=== PATIENT | female | born 1945 | race Caucasian/White ===

== ENCOUNTER 2023-05-18 06:17 | Day surgery (SDC) | payer MEDICARE, SELFPAY ==
[2023-05-11 09:42] VITALS: BMI 23.6
--- NOTE | 2023-05-12 14:12 | HO.ANESPROP2 ---
Documented by User: Flory Pinon NP 05/12/23 14:12 HPI - Anesthesia Eval Consult details Narrative: 78yo F for Left Cataract Extraction IOL Insertion Medically optimized No previous cataract on record COUNT INCLUDES THE [facility] Past Medical History Medical History (Updated 05/11/23 @ 09:42 by Kristie Morales RN) COPD (chronic obstructive pulmonary disease) Arthritis Iron deficiency anemia IBS (irritable bowel syndrome) Hiatal hernia GERD (gastroesophageal reflux disease) Fibromyalgia TIA (transient ischemic attack) Trigeminal neuralgia Anxiety Depression Elevated cholesterol Parkinson's disease Surgical History Surgical History (Updated 05/11/23 @ 09:33 by Kristie Morales RN) H/O colonoscopy Hx of varicose vein ligation Hx of lumbar discectomy Hx of cervical discectomy Hx of inguinal hernia repair Hx of cholecystectomy History of pubovaginal sling Hx of hysterectomy Social History Are you a primary attending ambulatory care to a significant other at home: No Do you presently have visiting nurse or other home services: No Patient Tobacco Use Status: Former Tobacco user Quit Date: Tobacco use type: Cigarette Use of substances other than those prescribed or required for medical reasons: No Have you been hit, kicked, punched, or otherwise hurt by someone within the past year? If so, by whom?: No Are you DNR?: No Advance Directives Information Provided: Yes (as above noted) Advance Directives on File: No Eating poorly because of decreased appetite: No Nutrition Risks: Surgical patient >75years Poor oral hygiene: No Meds Allergies Allergy/AdvReac Type Severity Reaction Status Date / Time Latex, Natural Rubber Allergy Intermediate Blister Verified 05/11/23 09:36 Ekngwgq-BFD-HqT Reductase AdvReac Severe Muscle Pain Verified 05/11/23 09:36 Inhibitor Home Medications Medication Instructions Recorded Confirmed Last Taken Type amitriptyline 25 mg tablet 25 mg PO BEDTIME 05/11/23 05/11/23 Unknown History aspirin 81 mg tablet,delayed 81 mg PO DAILY 05/11/23 05/11/23 Unknown History release brimonidine 0.2 % eye drops 1 drp ophthalmic (eye) Q12H 05/11/23 05/11/23 Unknown History budesonide-formoterol HFA 160 2 puff inhalation BID 05/11/23 05/11/23 05/18/23 History mcg-4.5 mcg/actuation aerosol inhaler (Symbicort) carbidopa 25 mg-levodopa 100 mg 1 tab PO QID 05/11/23 05/11/23 05/18/23 History tablet multivitamin 1 tab PO DAILY 05/11/23 05/11/23 Unknown History nitroglycerin 0.4 mg sublingual 0.4 mg sublingual ONCE PRN Chest 05/11/23 05/11/23 Unknown History tablet Pain paroxetine HCl 20 mg tablet 20 mg PO QAM 05/11/23 05/11/23 05/18/23 History polyethylene glycol 3350 17 gram 17 g PO DAILY 05/11/23 05/11/23 Unknown History oral powder packet Exam Height,Weight and Vital Signs: Height 5 ft 3 in Weight 60.328 kg Assessment and Plan Assessment Anesthesia Assessment: Chart Reviewed Documented by User: Bette Dickson MD 05/18/23 07:45 COUNT INCLUDES THE [facility] Past Medical History Medical History (Updated 05/11/23 @ 09:42 by Kristie Morales RN) COPD (chronic obstructive pulmonary disease) Arthritis Iron deficiency anemia IBS (irritable bowel syndrome) Hiatal hernia GERD (gastroesophageal reflux disease) Fibromyalgia TIA (transient ischemic attack) Trigeminal neuralgia Anxiety Depression Elevated cholesterol Parkinson's disease Surgical History Surgical History (Updated 05/11/23 @ 09:33 by Kristie Morales RN) H/O colonoscopy Hx of varicose vein ligation Hx of lumbar discectomy Hx of cervical discectomy Hx of inguinal hernia repair Hx of cholecystectomy History of pubovaginal sling Hx of hysterectomy History of Problems with Anesthesia: No Social History Are you a primary attending ambulatory care to a significant other at home: No Do you presently have visiting nurse or other home services: No Patient Tobacco Use Status: Former Tobacco user Quit Date: Tobacco use type: Cigarette Use of substances other than those prescribed or required for medical reasons: No Have you been hit, kicked, punched, or otherwise hurt by someone within the past year? If so, by whom?: No Are you DNR?: No Advance Directives Information Provided: Yes (as above noted) Advance Directives on File: No Eating poorly because of decreased appetite: No Nutrition Risks: Surgical patient >75years Poor oral hygiene: No Meds Allergies Allergy/AdvReac Type Severity Reaction Status Date / Time Latex, Natural Rubber Allergy Intermediate Blister Verified 05/11/23 09:36 Devtvit-TAJ-CmN Reductase AdvReac Severe Muscle Pain Verified 05/11/23 09:36 Inhibitor Home Medications Medication Instructions Recorded Confirmed Last Taken Type amitriptyline 25 mg tablet 25 mg PO BEDTIME 05/11/23 05/11/23 Unknown History aspirin 81 mg tablet,delayed 81 mg PO DAILY 05/11/23 05/11/23 Unknown History release brimonidine 0.2 % eye drops 1 drp ophthalmic (eye) Q12H 05/11/23 05/11/23 Unknown History budesonide-formoterol HFA 160 2 puff inhalation BID 05/11/23 05/11/23 05/18/23 History mcg-4.5 mcg/actuation aerosol inhaler (Symbicort) carbidopa 25 mg-levodopa 100 mg 1 tab PO QID 05/11/23 05/11/23 05/18/23 History tablet multivitamin 1 tab PO DAILY 05/11/23 05/11/23 Unknown History nitroglycerin 0.4 mg sublingual 0.4 mg sublingual ONCE PRN Chest 05/11/23 05/11/23 Unknown History tablet Pain paroxetine HCl 20 mg tablet 20 mg PO QAM 05/11/23 05/11/23 05/18/23 History polyethylene glycol 3350 17 gram 17 g PO DAILY 05/11/23 05/11/23 Unknown History oral powder packet Exam Airway Mallampati Class: II TM Dist: >3cm Neck ROM: Full Heart: RRR Lungs: CTA Assessment and Plan Assessment Anesthesia Assessment: Anesthesia Plan Discussed Final Anesthetic Review History of Problems with Anesthesia: No NPO: Yes ASA Class: III Final Preanesthetic Review: Meds/Allgs Chart Reviewed, Consent Obtained/Reviewed and Anes Risks/Benef Reviewed Patient Risk: Intermediate Procedure Risk: Low Anesthetic Plan Anesthetic Plan: MAC: Disposition: Standard PACU
[2023-05-18 06:57] VITALS: BP 153/67; PULSE 69; RESP 16; TEMP 36.8; O2SAT 97
[2023-05-18] MEDS: Lactated Ringers 500 ML 50 ML IV (06:59)
--- NOTE | 2023-05-18 07:57 | HO.PNOPHT ---
Ophthalmology Procedure Procedure Date of Service: 05/18/23 Ophthalmology Viscoelastic: Healon Duet Dual Pack Pro Ophthalmology Lenses: TECNIS [id number] (20.5) Procedure Notes: PREOPERATIVE DIAGNOSIS: Decreased visual acuity left eye secondary to cataract POSTOPERATIVE DIAGNOSIS: Same PROCEDURE: Left cataract extraction with intraocular lens insertion SURGEON: Demarcus Campbell M.D. ANESTHESIA: Topical/MAC ESTIMATED BLOOD LOSS: None COMPLICATIONS: None After obtaining informed consent, the patient was brought to the operation room suite and placed in the supine position. After adequate sedation per anesthesia, topical drops of Tetracaine were given to the left eye. The eye was then prepped and draped in the usual sterile fashion. The operating room microscope was then positioned over the operative eye and a lid speculum placed. A paracentesis was created. Viscoelastic was then instilled into the anterior chamber. A three plane incision was then created temporally, utilizing a 2.85 mm keratome. Capsulotomy forceps were then utilized to create a circular tear capsulotomy. Hydrodissection and hydrodelineation were carried out until adequate mobilization of the nucleus occurred. Phacoemulsification was then utilized to remove the dense central nucleus followed by removal of the cortical material utilizing the automated aspiration irrigation unit. Viscoat elastic was instilled into the posterior capsular bag followed by placement of a posterior chamber intraocular lens without difficulty. The residual Viscoat elastic was then removed utilizing the automated IA machine. The wound was check and found to be watertight. The patient tolerated the procedure well and the lid speculum was removed. Intracameral injection of Vigamox 0.1 mL followed by a subtenon injection of Kenalog-40 0.2 mL were administered. The patient will be seen in the a.m.
[2023-05-18 08:24] VITALS: BP 158/60; PULSE 67; RESP 17; TEMP 36.3; O2SAT 95
== END 2023-05-18 08:28 | disposition home or self-care (01) ==
PROVIDERS: PCP Family Medicine; Visit Provider Ophthalmology
PROC: (CPT 66985; principal; 2023-05-18 08:00)
DX: H25.12 Age-related nuclear cataract, left eye (principal); H52.4 Presbyopia; H40.1131 Primary open-angle glaucoma, bilateral, mild stage; H11.153 Pinguecula, bilateral; H43.393 Other vitreous opacities, bilateral; H18.413 Arcus senilis, bilateral; G20.A2 Parkinson's disease without dyskinesia, with fluctuations; J44.9 Chronic obstructive pulmonary disease, unspecified; D50.9 Iron deficiency anemia, unspecified; F41.8 Other specified anxiety disorders; Z98.1 Arthrodesis status; Z79.82 Long term (current) use of aspirin; Z79.51 Long term (current) use of inhaled steroids; Z79.899 Other long term (current) drug therapy; Z88.8 Allergy status to other drugs, medicaments and biological substances; Z91.040 Latex allergy status
CPT/HCPCS: 66984; J3010; J3301; V2632

== ENCOUNTER 2025-04-25 10:00 | Outpatient (AMB) | payer MEDICARE, SELFPAY ==
--- NOTE | 2025-04-25 10:35 | A.OFFVIS_ITS ---
Intake Visit Reasons: ENP-Parkinson Allergies Latex, Natural Rubber Allergy (Intermediate, Verified 05/11/23 09:36) Blister Wvkindx-WXQ-PhM Reductase Inhibitor Adverse Reaction (Severe, Verified 05/11/23 09:36) Muscle Pain Medication List - Last Reconciled 04/25/25 by Lamin Vazquez MD amitriptyline 25 mg PO BEDTIME aspirin 81 mg PO DAILY brimonidine 0.2% 1 drp ophthalmic (eye) Q12H budesonide-formoterol 160-4.5 mcg/actuation (Symbicort) 2 puffs inhalation BID carbidopa-levodopa 25-100 mg 1 tab PO QID desonide 0.05% 1 appl topical DAILY multivitamin 1 tab PO DAILY omeprazole 20 mg PO DAILY paroxetine HCl 20 mg PO QAM polyethylene glycol 3350 17 grams PO DAILY HPI Comments Details: This is a 80-year-old woman who is here with her and daughter for a 2nd opinion regarding her ?Parkinson's disease?. She has a history of osteoarthritis, hiatal hernia with GERD and a remote history of right trigeminal neuralgia that has been in remission. She has some COPD and asthma as well as some elements of depression and anxiety. She 1st developed some tremors in her hands about more than 10 years ago [address] saw Dr[address] Mukund Hernandes III who diagnosed her as having familial tremor because of the history of tremor in her father and 2 brothers. Five years ago she saw Dr. Restrepo who diagnosed her with Parkinson's disease and put her on carbidopa le vodopa 251 q.i.d.. There has been no significant change except she says that she does not get tremors when she is relaxed at home and only gets them if she is anxious or has to go somewhere. The tremor can affect the whole-body which gets a little shaky and wobbly and particularly in her hands. In the last year she has been noted to have some soft findings of short-term memory decline. No major change in her smell. No nightmares. She has been on amitriptyline 25 mg for many years and also takes paroxetine 20 mg. She has had chronic constipation problems as well. No major mobility problems. She is independent without a cane or walker. She has some difficulty turning in bed because of aches and pains. She is here because she wants to know if she really has Parkinson's disease. [facility] Medical History (Updated 04/25/25 @ 10:53 by Lamin Vazquez MD) Migraine COPD (chronic obstructive pulmonary disease) Arthritis Iron deficiency anemia IBS (irritable bowel syndrome) Hiatal hernia GERD (gastroesophageal reflux disease) Fibromyalgia TIA (transient ischemic attack) Trigeminal neuralgia Anxiety Depression Elevated cholesterol Parkinson's disease Surgical History (Updated 05/11/23 @ 09:33 by Kristie Morales RN) H/O colonoscopy Hx of varicose vein ligation Hx of lumbar discectomy Hx of cervical discectomy Hx of inguinal hernia repair Hx of cholecystectomy History of pubovaginal sling Hx of hysterectomy Social History Are you a primary transitional care manager to a significant other at home: No Do you presently have visiting nurse or other home services: No Patient Tobacco Use Status: Former Tobacco user Tobacco use type: Cigarette Review of Systems Const Reports weight loss Resp Reports excessive phlegm production Musc Reports abnormal gait Neuro Reports Neuro-related abnormal movements, Reports abnormal gait, Reports memory loss and Reports tremor(s) Psych Reports anxiety, Reports depression and Reports memory loss Physical Exam Neuro Other: ?Mini Mental Status Exam Level of Consciousness:?Alert.? Orientation:?Knows correct year, month, date, day and season.?Knows correct city, county and state. Knows correct location and floor.? Registration:?Able to register 3 objects.? Attention:?Serial 7's performed accurately.? Recall:?Able to recall 3 out of 3 objects.? Language:?Normal spontaneous speech, fluency, repetition, naming, comprehension, reading, and writing.? Total Score:?30/30.? Neurological Abnormal neurological findings:? Prominent intermittent coarse tremors of both hands sometimes when she is using them but not at rest. No head tremor. No reduction in facial expression. Normal muscle tone with no rigidity or cogwheeling. Good arm swing when she walks.? Mental Status:?Alert and oriented X 3.?Normal attention, orientation, memory, and affect.? Cranial Nerves:?Pupils are equal, round and reactive to light. Fundoscopy shows normal disc bilaterally. External occular muscles are intact. Visual messina are full, no ptosis. Face is symmetrical, no facial weakness or droop. Facial sensations are normal. Tongue protrudes in midline. Palate elevates symmetrically. Shoulder shrugging is normal.? Motor Examination:?Normal muscle tone, bulk and strength.?No atrophy or fasciculations.?No drift of the extended upper extremities.?Deep tendon reflexes are 2+.?Plantars are flexor.? Motor Strength:? Proximal Muscles (out of 5):?5 Distal Muscles (out of 5):?5 Neck Flexors (out of 5):?5 Neck Extensors (out of 5):?5 Deltoid (out of 5):?5 Biceps (out of 5):?5 Triceps (out of 5):?5 Serratus Anterior (out of 5):?5 Wrist Extensors (out of 5):?5 APB (out of 5):?5 Finger Spread (out of 5):?5 Ileopsoas (out of 5):?5 Quadriceps (out of 5):?5 Hamstrings (out of 5):?5 Tibialis Anterior (out of 5):?5 Peronei (out of 5):?5 EDB (out of 5):?5 Gastrocnemius (out of 5):?5 Straight Leg Raising:?90 degrees.? Sensory Exam:?Normal light touch, temperature, pinprick, vibration and joint-position sensations.?Rhomberg sign is absent.? Coordination:?No ataxia,?no titubation,?rhcann-uz-rvjf, rtzm-ejci-gdhy test, and rapid alternating movements were normal.? Gait Exam:?Within normal limits.? Cerebellar Signs:?Loywzh-tr-xlrt and undq-wa-vjzd is normal.?No dysdiadochokinesia.? Extrapyramidal System:? Tremor as above. No?rigidity, normal facial expressions.?No bradykinesia. No bradyphrenia. Normal arm swing and posture. No propulsion or retropulsion.? Speech:?Normal,?no dysphasia or dysarthria.? General Examination GENERAL APPEARANCE:??normal,?in no acute distress?,?normal,?in no acute distr ess.? HEAD:??normocephalic,?atraumatic.? EYES:??sclera non-icteric,?conjunctiva clear.? EARS:??auditory canal clear,?tympanic membrane intact, clear.? NOSE:??no lesions.? ORAL CAVITY:??gums normal,?mucosa moist,?no lesions.? THROAT:??clear.? NECK/THYROID:??no cervical lymphadenopathy,?thyroid normal,?neck supple, full range of motion,?no carotid bruit.? SKIN:??no rashes,?no significant birthmarks.? HEART:??S1, S2 normal,?no murmurs?,?S1, S2 normal,?no murmurs.? LUNGS:??clear anteriorly and posteriorly?,?clear anteriorly and posteriorly.? CHEST:??no gross rib deformity,?clear to auscultation.? BACK:??normal exam of spine.? MUSCULOSKELETAL:??normal.? EXTREMITIES:??no edema?,?no edema.? PERIPHERAL PULSES:??normal.? PSYCH:??alert, oriented,?cognitive function intact,?cooperative with exam?,?alert, oriented,?cognitive function intact,?cooperative with exam.? Assessment & Plan Assessment & Plan (1) Benign familial tremor: Code(s): G25.0 - Essential tremor Category: Medical (2) Parkinson's disease: Comment: taking carbidopa/levodopa. I do not believe that she has Parkinson's disease but rather familial tremor. Since she is being treated it is possible that the carbidopa levodopa could be masking some of the other parkinsonian features. Code(s): G20.A1 - Parkinson's disease without dyskinesia, without mention of fluctuations Category: Medical (3) Trigeminal neuralgia: Comment: In remission for many years Code(s): G50.0 - Trigeminal neuralgia Category: Medical Plan FELICIA Scan, Taper of L-Dopa over 6 wks, Reduce Amitriptyline to 1/2 tab. Reduce Symbicort to 1 puff bid Orders: Orders DaTscan 3 Weeks G20.A1 - Parkinson's disease without dyskinesia, without mention of fluctuations, G25.0 - Essential tremor Coding Level of Care Code New Pt Level 5 (33990) Diagnoses Benign familial tremor G25.0 Parkinson's disease G20.A1 Trigeminal neuralgia G50.0
--- OUTSIDE RECORDS SUMMARY | 2025-04-25 11:34 | XMS_ITS | Encounter Summary ---
Author Organization [facility] Address [address] [place] [address] [place] [id number] Phone Care Team Providers Care Greenhouse Instructor Name Role Phone Enoch Lorenzana MD Primary Care Provider [phone] Enoch Lorenzana MD Unavailable [phone] Encounter Details Date Type Department Care Team (Late st Contact Info) Description 03/07/2024 Procedure Pass [facility], Ct Scan - [address] [address] Social History Tobacco Use Types Packs/Day Years Used Date Smoking Tobacco: Former Cigarettes 0.3 30 1 965 - 1994 Smokeless Tobacco: Never Alcohol Use Standard Drinks/Week Comments Yes 0 (1 standard drink = 0.6 oz pure alcohol) one glass of wine on special occasion Education Answer Date Recorded Are you interested in more education? Not on ericka e 10/18/2022 Are you concerned about learning? Not on file 10/18/2022 No 10/18/2022 No 10/18/2022 Digital Access Answer Date Recorded No 11/16/2022 No 11/16/2022 Reliable internet access at home? Not on file 11/16/2022 Device with a working camera? Not on file Intimate Partner Violence Answer Date R ecorded Are you denied basic needs s uch as food, clothing, or medical care? No 03/07/2024 In the past 12 months have y ou been in a relationship with a person who hurts, threatens, or tries to control you? No 03/07/2024 Are you denied basic needs s uch as food, clothing, or medical care? No 03/07/2024 In the past 12 months have y ou been in a relationship with a person who hurts, threatens, or tries to control you? No 03/07/2024 Comments No Sex and Gender Information Value Date Recorded Sex Assigned at Female 01/28/2021 11:00 AM EDT Legal Sex Female 6:27 PM EST Gender Identity Female 01/28/2021 11:00 AM EDT Sexual Orientation Not on file documented as of this encounter Functional Status * Calculated C-SSRS Risk Score (Lifetime/Recent) Answer Date of Assessment Author No Risk Indicated 03/07/2024 1:45 PM EDT Kaylan Jason RN * Campbell Suicide Severity Rating Scale (Screener/Recent Self-Report) Question Answer Date of Assessment Author 1. Wish to be (Past 1 Month) No 024 1:45 PM EDT Kaylan Jason RN 2. Non-Specific Active Suici graciela Thoughts (Past 1 Month) No 03/07/2024 1:45 PM EDT Crista Jason RN 6. Suicidal Behavior (Lifetime) No 4 1:45 PM EDT Kaylan Jason RN documented as of this encounter Plan of Treatment Upcoming Encounters Date Type Department Care Team (Late st Contact Info) Description 07/24/2025 8:30 AM EST Office Visit [address] [place] [address] Enoch Lorenzana MD [address] [place] [address], [address] [place] [id number] 01/02/2026 9:00 AM EDT Office Visit [address] [place] [address] Enoch Lorenzana MD [address] [place] [address], [address] [place] [id number] documented as of this encounter Visit Diagnoses Not on filedocumented in this encounter Additional Health Concerns Assessment Noted Time PHQ-2 Depression Total Score: 1 07/31/19 24 8:58 AM EST documented as of this encounter Care Teams Greenhouse Instructor Relationship Specialty Start Date End Date Enoch Lorenzana MD [address] [place] [address], [address] [place] [address] PCP - General 11/30/14 Enoch Lorenzana MD [address] [place] [address], [address] [place] [address] Insurance Assigned Provider 09/26/23 documented as of this encounter Additional Source Comments The information contained in this document represents components of the legal health record. It is not the complete legal health record.[facility]
--- OUTSIDE RECORDS SUMMARY | 2025-04-25 11:35 | XMS_ITS | Encounter Summary ---
Author Organization [facility] Address [address] [place] [address] [place] [phone] Phone Care Team Providers Care Paper Cutter Operator Name Role Phone Enoch Lorenzana MD Primary Care Provider + [phone] Enoch Lorenzana MD Unavailable [phone] Encounter Details Date Type Department Care Team (Late st Contact Info) Description 08/27/2021 Procedure Pass [place] Admitting Dept - Virtual Department [address] [place] [id number] Social History Tobacco Use Types Packs/Day Years Used Date Smoking Tobacco: Former Cigarettes 0.3 30 1 965 - 1994 Smokeless Tobacco: Never Alcohol Use Standard Drinks/Week Comments Not Currently 0 (1 standard drink = 0.6 oz pure alcohol) one glass of wine on special occasion Comments No Sex and Gender Information Value Date Recorded Sex Assigned at Female 01/28/2021 11:00 AM EDT Legal Sex Female 6:27 PM EST Gender Identity Female 01/28/2021 11:00 AM EDT Sexual Orientation Not on file documented as of this encounter Plan of Treatment Upcoming Encounters Date Type Department Care Team (Late st Contact Info) Description 07/24/2025 8:30 AM EST Office Visit [facility] [address] [place] [address] Enoch Lorenzana MD [address] [facility], [address] [place] [address] 01/02/2026 9:00 AM EDT Office Visit [facility] Medicine [address] [place] [address] Enoch Lorenzana MD [address] [facility] [place] [address] [email or web address] documented as of this encounter Visit Diagnoses Not on filedocumented in this encounter Additional Health Concerns Infection Onset Date Last Indicated Resolved Time CoV-Risk 08/21/2023 08/21/2023 09/01/2023 1:23 AM EDT Assessment Noted Time PHQ-2 Depression Total Score: 0 07/23/19 9:23 AM EST documented as of this encounter Care Teams Paper Cutter Operator Relationship Specialty Start Date End Date Enoch Lorenzana MD [address] [place] [address], [address] [place] [address] PCP - General 11/30/14 Enoch Lorenzana MD [address] [place] [address], [address] [place] [address] Insurance Assigned Provider 09/26/23 documented as of this encounter Additional Source Comments The information contained in this document represents components of the legal health record. It is not the complete legal health record.[facility]
--- OUTSIDE RECORDS SUMMARY | 2025-04-25 11:35 | XMS_ITS | Encounter Summary ---
Author Organization [facility] Address [address] [place] [address] [place] [address] Phone Care Team Providers Care Community Service Officer Name Role Phone Enoch Lorenzana MD Primary Care Provider [phone] Enoch Lorenzana MD Unavailable [phone] Encounter Details Date Type Department Care Team (Late st Contact Info) Description 03/07/2024 Procedure Pass [facility], Ct Scan - [address] [address] Social History Tobacco Use Types Packs/Day Years [...] 1:45 PM EDT Kaylan Jason RN * Perry Suicide Severity Rating Scale (Screener/Recent Self-Report) Question [...] Description 07/24/2025 8:30 AM EST Office Visit [address] [place] [address] Enoch Lorenzana MD [address] [place] [address], [address] [place] [address] [email or web address] 01/02/2026 9:00 AM EDT Office Visit [address] [place] [address] Enoch Lorenzana MD [address] [place] [address], [address] [place] [address] documented as of this encounter Visit Diagnoses Not on filedocumented in this encounter Additional Health Concerns Assessment Noted Time PHQ-2 Depression Total Score: 1 07/31/19 24 8:58 AM EST documented as of this encounter Care Teams Community Service Officer Relationship Specialty Start Date End Date Enoch Lorenzana MD [address] [place] [address], [address] [place] [address] PCP - General 11/30/14 Enoch Lorenzana MD [address] [place] [address], [address] [place] [address] Insurance Assigned Provider 09/26/23 documented as of this encounter Additional Source Comments The information contained in this document represents components of the legal health record. It is not the complete legal health record.[facility]
--- OUTSIDE RECORDS SUMMARY | 2025-04-25 11:36 | XMS_ITS | Encounter Summary ---
Author Organization [facility] Address [address] [place] [address] [place] [phone] Phone Care Team Providers Care Machine Stone Polisher Apprentice Name Role Phone Enoch Lorenzana MD Primary Care Provider [phone]- [phone] Enoch Lorenzana MD Unavailable [phone] Encounter Details Date Type Department Care Team (Late st Contact Info) Description 08/22/2022 Procedure Pass [facility], Ct Scan - [address] [address] Social History Tobacco Use Types Packs/Day Years [...] Description 07/24/2025 8:30 AM EST Office Visit [address] [place] [address] Enoch Lorenzana MD 22 [facility], [address] [place] [address] 01/02/2026 9:00 AM EDT Office Visit [facility] Medicine [address] [place] [address] Enoch Lorenzana MD [address] [facility], [address] [place] [address] [email or web address] documented as of this encounter Visit Diagnoses Not on filedocumented in this encounter Additional Health Concerns Infection Onset Date Last Indicated Resolved Time CoV-Risk 08/21/2023 08/21/2023 09/01/2023 1:23 AM EDT Assessment Noted Time PHQ-2 Depression Total Score: 0 07/29/19 2:34 PM EST documented as of this encounter Care Teams Machine Stone Polisher Apprentice Relationship Specialty Start Date End Date Enoch Lorenzana MD 22 [facility], [address] [place] [address] PCP - General 11/30/14 Enoch Lorenzana MD [address] [place] [address], [address] [place] [address] Insurance Assigned Provider 09/26/23 documented as of this encounter Additional Source Comments The information contained in this document represents components of the legal health record. It is not the complete legal health record.[facility]
--- OUTSIDE RECORDS SUMMARY | 2025-04-25 11:36 | XMS_ITS | Encounter Summary ---
Author Organization [facility] Address [address] [place] [address] [place] [phone] Phone Care Team Providers Care Paper Bag Machine Operator Name Role Phone Enoch Lorenzana MD Primary Care Provider [phone] Enoch Lorenzana MD Unavailable Reason for Referral * MRI/CAT Scan - Closed Specialty Diagnoses / Procedures Referred By Contjannet t Referred To Contact Radiology Diagnoses CAD (coronary artery disease) Procedures NC Stress Result for Nuclear Stress Test Enoch Lorenzana MD Phone: tel: fax: [email or web address] Referral ID Status Reason Start Date Expiration Date Visits Re quested Visits Authorized [id number] Closed 08/28/2022 08/28/2023 1 1 Encounter Details Date Type Department Care Team (Late st Contact Info) Description 08/28/2022 Ancillary Orders Non-Invasive Cardiology [address] [place] [address] Enoch Lorenzana MD 22 [facility], [address] [place] [address] [email or web address] CAD (coronary artery disease) Social History Tobacco Use Types Packs/Day Years [...] Description 07/24/2025 8:30 AM EST Office Visit [address] [place] [address] Enoch Lorenzana MD [address] [place] [address], [address] [place] [address] [email or web address] 01/02/2026 9:00 AM EDT Office Visit [address] [place] [address] Enoch Lorenzana MD [address] [place] [address], [address] [place] [address] [email or web address] documented as of this encounter Results * NC Stress Result for Nuclear Stress Test (08/28/2022 12:32 PM EST) Max BP Systolic 200 mmHg [facility] Max BP Diastolic 90 mmHg [facility] Max HR 107 BPM [facility] Resting HR 84 BPM [facility] Resting BP Systolic 144 mmHg [facility] Resting BP Diastolic 82 mmHg [facility] Peak METS 4.5 METS [facility] Peak HR 106 BPM [facility] Anatomical Region Laterality Modality Heart Other 08/28/2022 10:0 2 AM EST 08/28/2022 12:25 PM EST Narrative 08/29/2022 9:00 AM EST I agree with the findings and conclusion of the supervising advanced practitioner. No EKG evidence of ischemia. Patient did report symptoms concerning for angina. Nuclear images pending and will be reported separately. Response to Stress The patient exercised for minutes seconds, achieving 4.5 METS at peak exercise. Baseline blood pressure was 144/82 mmHg, and baseline heart rate was 84 bpm. The patient achieved a peak heart rate of 106 bpm, which is% of their maximum predicted heart rate. REPORT- Patient exercised for 3;56 minutes on a MAGNOLIA protocol achieving 5.2 METS. Test terminated due to severe neck, left shoulder and left arm pain (? anginal equivalent). Baseline resting heart rate was 68 bpm. Maximum heart rate achieved was 107 bpm (75% MPHR). 1. EKG - Baseline EKG showed sinus rhythm. During exercise, there were no EKG changes suggestive of ischemia. 2. SYMPTOMS - At peak exercise, patient reported onset of severe left neck, shoulder and arm pain with associated arm numbness. Symptoms slowly improved at rest during the recovery period. 3. EXERCISE PHYSIOLOGY - Average functional capacity for age. Normotensive BP response to exercise. 4. ARRHYTHMIAS - Rare PACs and PVCs. Conclusion - No EKG evidence of ischemia. Patient did report symptoms concerning for angina. Nuclear images pending and will be reported separately. Zahida Eller NP with Dr Jiménez . Enoch Lorenzana MD CV NM CARDIAC Final Resu lt documented in this encounter Visit Diagnoses Diagnosis CAD (coronary artery disease) Coronary atherosclerosis of unspecified type of vessel, chilkat or graft CAD (coronary artery disease) Coronary atherosclerosis of unspecified type of vessel, chilkat or graft documented in this encounter Additional Health Concerns Infection Onset Date Last Indicated Resolved Time CoV-Risk 08/21/2023 08/21/2023 09/01/2023 1:23 AM EDT Assessment Noted Time PHQ-2 Depression Total Score: 0 07/29/19 23 2:34 PM EST documented as of this encounter Care Teams Paper Bag Machine Operator Relationship Specialty Start Date End Date Enoch Lorenzana MD [address] [place] [address], [address] [place] [address] PCP - General 11/30/14 Enoch Lorenzana MD [address] [place] [address], [address] [place] [address] [email or web address] Insurance Assigned Provider 09/26/23 documented as of this encounter Additional Source Comments The information contained in this document represents components of the legal health record. It is not the complete legal health record.[facility]
--- OUTSIDE RECORDS SUMMARY | 2025-04-25 11:38 | XMS_ITS | Encounter Summary ---
Author Organization [facility] Address [address] [place] [address] [place] [address] Phone Care Team Providers Care Manager Of Hospital Name Role Phone Enoch Lorenzana MD Primary Care Provider + [phone] Enoch Lorenzana MD Unavailable [phone] Encounter Details Date Type Department Care Team (Late st Contact Info) Description 03/25/2019 Procedure Pass [facility], [address] [address] Social History Tobacco Use Types Packs/Day Years Used Date Smoking Tobacco: Former Cigarettes 0.3 30 1 965 - 1994 Smokeless Tobacco: Never Alcohol Use Standard Drinks/Week Comments Not Currently 0 (1 standard drink = 0.6 oz pur e alcohol) Comments No Sex and Gender Information Value Date Recorded Sex Assigned at Female 01/28/2021 11:00 AM EDT Legal Sex Female 6:27 PM EST Gender Identity Female 01/28/2021 11:00 AM EDT Sexual Orientation Not on file documented as of this encounter Plan of Treatment Upcoming Encounters Date Type Department Care Team (Late st Contact Info) Description 07/24/2025 8:30 AM EST Office Visit [address] [place] [address] Enoch Lorenzana MD 22 [facility], [address] [place] [address] 01/02/2026 9:00 AM EDT Office Visit [facility] [address] [place] [address] Enoch Lorenzana MD 22 [facility], [address] [place] [address] documented as of this encounter Visit Diagnoses Not on filedocumented in this encounter Additional Health Concerns Infection Onset Date Last Indicated Resolved Time CoV-Risk 08/21/2023 08/21/2023 09/01/2023 1:23 AM EDT Assessment Noted Time PHQ-2 Depression Total Score: 1 10/16/19 19 9:53 AM EDT documented as of this encounter Care Teams Manager Of Hospital Relationship Specialty Start Date End Date Enoch Lorenzana MD [address] [place] [address], [address] [place] [address] PCP - General 11/30/14 Enoch Lorenzana MD [address] [place] [address], [address] [place] [address] Insurance Assigned Provider 09/26/23 documented as of this encounter Additional Source Comments The information contained in this document represents components of the legal health record. It is not the complete legal health record[facility]
--- OUTSIDE RECORDS SUMMARY | 2025-04-25 11:38 | XMS_ITS | Clinical Summary ---
Author Organization [facility] Address [address] [place] [address] Phone Care Team Providers Care Lawnmower Mechanic Name Role Phone Enoch Lorenzana MD Primary Care Provider [phone] Enoch Lorenzana MD Unavailable [phone] Allergies Active Allergy Reactions Criticality Noted Date Comments Atorvastatin Myalgia Low 03/05/2021 Latex Hives High 03/09/2013 Rosuvastatin Myalgia Low 03/09/2013 Trospium Fatigue,Tremor Low 04/03/2020 Medications aspirin 81 mg chewable tablet Take 1 tablet by mouth daily. Active brimonidine 0.2 % ophthalmic solution Place 1 drop into each eye 2 (two) times a day. 5 9 Active polyethylene glycol (MIRALAX) 17 gram packet Take 17 g by mouth daily. Active therapeutic multivitamin tablet Take 1 tablet by mouth daily. Active carbidopa-levodo pa (SINEMET) 25-100 mg per tablet Take 1 tablet by mouth 4 (four) times a day. 3 Active desonide (DESOWEN) 0.05 % cream Apply 0.05 Applications topically 2 (two) times a day. 4 Active acetaminophen (TYLENOL) 500 MG tabletIndication s:arthritic pain Take 1,000 mg by mouth 2 (two) times a day (once in the morning and once in the afternoon). Indications: pain associated with arthritis Active glucosam/kris-ms m1/C/karishma/bosw (OSTEO BI-FLEX TRIPLE STRENGTH ORAL) Take 1 tablet by mouth daily. Active food supplemt, lactose-reduced (,ENSURE PLUS,) 0.05 gram- 1.5 kcal/mL Liqd Take 1 Can by mouth 3 (three) times a day. Active fluticasone propionate (FLONASE) 50 mcg/actuation nasal spray 1 spray by Nasal route daily. Active omeprazole (PRILOSEC) 20 MG capsule Take 1 capsule (20 mg total) by mouth daily. 90 capsule 3 5 Active budesonide-formo terol 160-4.5 mcg/actuation inhalerIndicatio ns:Asthma INHALE TWO PUFFS BY MOUTH TWICE A DAY 10.2 g 11 5 Active PARoxetine (PAXIL) 20 MG tablet TAKE ONE TABLET BY MOUTH EVERY MORNING 90 tablet 3 5 Active Active Problems Problem Noted Date Diagnosed Date Allergic rhinitis due to allergen 12/20/2024 Assessment & Plan (12/20/2024 9:13 AM EDT): Recommend loratadine 10 mg daily [id number] and Flonase 2 sprays daily to each nostril. Primary osteoarthritis of both hands 05/30/2024 Primary osteoarthritis of left knee 12/24/2023 Assessment & Plan (03/14/2024 12:12 PM EDT): Left knee pain after fall. She denies significant pain worse from baseline. She is following with orthopedics and will call them if knee pain persists or worsens. Carpal tunnel syndrome on left 12/24/2023 Parkinson's disease without dyskinesia Assessment & Plan (12/20/2024 9:13 AM EDT): Cortical age-related cataract of right eye 06/17 Iron deficiency anemia 08/19/2022 S/P inguinal hernia repair using synthetic patch 09/10/2021 Esophageal spasm 11/23/2020 Hot flashes 08/21/2020 Overview (08/21/2020): Onset in Apr 2020 after stopping a vaginal E2 cream 3x a week, small amount Assessment & Plan (03/14/2024 12:09 PM EDT): Pt noting ongoing hot flashes, somewhat worse than prior. Advised she continue to monitor. Follow up with PCP if worsening or failure to improve. Assessment & Plan (08/21/2020 5:54 PM EST): These are decreasing; may have absorbed more of the E2 via the vaginal cream than usual Other etiologies more rare such as peho, declined 24 hour urine testing for metabolites Advise seeing PCP is these persist or increase to look for other etiologies Cystocele with rectocele 03/03/2018 Overview (08/21/2020): S/p repair with a tape by [facility] nurse assistant Assessment & Plan (08/21/2020 5:52 PM EST): Currently without sxs from this other than urethra is displaced and urine stream is off? Abnormal fasting glucose 05/26/2017 Depression with anxiety 05/26/2017 Assessment & Plan (12/20/2024 9:13 AM EDT): Patient referred to Ricardo Jenkins for counseling. Cervical radiculitis 05/26/2017 Chronic neck pain 05/26/2017 Familial tremor 05/26/2017 Fibromyalgia 05/26/2017 Gastroesophageal reflux disease without esophagi tis 05/26/2017 Hiatal hernia 05/26/2017 History of TIA (transient ischemic attack) and s troke 05/26/2017 Hypercalcemia 05/26/2017 Mixed stress and urge urinary incontinence 05/26 Non-seasonal allergic rhinitis due to pollen 10/2016 Osteoarthritis of spine 05/26/2017 Arthralgia of hip 05/26/2017 Trigeminal neuralgia 05/26/2017 Trigger ring finger of left hand 05/26/2017 Other hyperlipidemia 03/10/2012 Overview (05/26/2017): Hyperlipidemia Irritable bowel syndrome COPD (chronic obstructive pulmonary disease) Overview (08/19/2022): inhalers Assessment & Plan (12/20/2024 9:13 AM EDT): Continue Symbicort. Resolved Problems Problem Noted Date Diagnosed Date Resolved Date Senile purpura 07/29/2022 10/23/2023 Essential hypertension 03/10/201210/15 Overview (08/12/2014): Hypertensive disorder Encounters Date Type Department Care Team Description 03/27/[address] [place] [address] Makenna Butt MA Results 03/23/2025 10:42 AM EDT - 03/23/2025 11:59 PM EDT Hospital Encounter [facility] [address] [address] Enoch Lorenzana MD Discharge Disposition: Home or Self Care 03/22/2025 8:30 AM EDT Office Visit [address] [place] [address] Enoch Lorenzana MD Parkinson's disease without dyskinesia, with fluctuating manifestations (Primary Dx); Oral thrush; Depression with anxiety; Malaise and fatigue; Abnormal fasting glucose 03/14/[address] [place] [address] Enoch Lorenzana MD Medication Refill 02/24/2025 1:30 PM EDT [facility] [address] [place] [phone] Nargis Toledo I, PT PT DISCIPLINE DISCHARGE NON VISIT/TELEPHONE 02/14/2025 12:30 AM EDT Home [facility] Visit [facility] [address] [place] [address] Kathleen Vann RN SN OASIS DISCHARGE VISIT 02/13/2025 10:00 AM EDT [facility] Visit [facility] [address] [place] [address] Nargis Toledo I, PT PT EVALUATION 02/12/[address] [place] [address] Enoch Lorenzana MD Medication Refill 02/07/2025 [facility] [address] [place] [address] Kathleen Vann, MARIPOSA SN HOME VISIT 02/02/2025 1:30 PM EDT [facility] [address] [place] [address] Tin Dodge LPN GOVERNMENT TEACHER HOME VISIT 01/31/2025 3:30 AM EDT Home [facility] Visit [facility] [address] [place] [address] Kathleen Vann RN SN HOME VISIT 01/28/2025 12:30 AM EDT [facility] [address] [place] [address] Betzaida Williamson RN SN HOME VISIT 01/27/2025 4:30 PM EDT Office Visit [address] [place] [address] Enoch Lorenzana MD Oral thrush (Primary Dx); Acute cystitis without hematuria; Parkinson's disease without dyskinesia, with fluctuating manifestations; Chronic obstructive pulmonary disease, unspecified COPD type 01/27/2025 [facility] [address] [place] [address] Pippa Buitrago, PT TELEPHONE ENCOUNTER 01/25/2025 Plan of Care Documentation [facility] [address] [place] [address] 01/24/2025 7:30 AM EDT [facility] [address] [place] [address] Kathleen Vann, MARIPOSA SN OASIS START OF CARE (SOC) 01/23/[address] [place] [address] Enoch Lorenzana MD Ed Follow up (Wendi Rice, Luis 01/23/25,DX UTI) 01/23/2025 Orders Only [facility] [address] [place] [phone] Homehealth, Interface ProviderMD 01/22/2025 1:52 PM EDT - 01/23/2025 9:38 AM EDT Emergency [facility] [address] [place] [address] Dennys Lakhani, Gentry Carrasco MD Discharge Disposition: Home or Self Care from Last 3 Months Immunizations Immunization Administration Dates Next Due COVID-19 (Pre-04/13) Pfizer Vaccine, mRNA, PF 08/15/2020,07/25/2020 Influenza High-Dose Quadriva lent Preservative Free IM 04/02/2023,03/24/2022,03/29/2021 Influenza High-Dose Trivalen t Preservative Free IM 03/22/2025,04/11/2024,03/02/2019,03/03,04/06/2017,04/17/2016 Influenza, Unspecified Formulation 03/09/2020 Pneumococcal conjugate PCV13 07/11/2014 Pneumococcal polysaccharide PPSV23 07/15/2010 RSV Vaccine (monovalent, adjuvanted) 08/05/2023 Td (adult) 5 Lf Tetanus Toxo id, PF, Adsorbed 07/18/2011 Tdap 07/23/2021 Zoster live 06/18/2007 Zoster recombinant 03/02/2019,12/13/2018 Family History Medical History Relation Comments Leukemia Brother 1 Leukemia Brother 2 CV disease Father Cancer Mother Melanoma Nephew 1 oral Melanoma Nephew 2 oral Breast cancer Sister 1 Colon cancer Sister 1 Leukemia Sister 2 Relation Status Comments Brother 1 Brother 2 Father Mother Nephew 1 Nephew 2 Sister 1 per pt: cause of colon cancer. Sister 2 Alive Social History Tobacco Use Types Packs/Day Years Used Date Smoking Tobacco: Former Cigarettes 0.3 30 1 965 - 1994 Smokeless Tobacco: Never Tobacco Cessation:Counseling Given: Not Answered Alcohol Use Standard Drinks/Week Comments Yes 0 (1 standard drink = 0.6 oz pure alcohol) one glass of wine on special occasion Home Health Assessment: Transportation Answer Date Recorded Lack of Transportation (Medical) No 02/24/2025 Lack of Transportation (Non-Medical) No 02/24/2025 Patient Unable or Declines to Respond No 02/24/2025 Education Answer Date Recorded Are you interested in more education? Not on ericka e 10/18/2022 Are you concerned about learning? Not on file 10/18/2022 No 10/18/2022 No 10/18/2022 Food Answer Date Recorded Within the past 6 months we worried whether our food would run out before we got money to buy more. Never True 01/22/2025 Within the past 6 months the food we bought just didn't last and we didn't have enough money to get more. Never True Residential Stability Answer Date Recor ded What is your housing situation today? I have juan sing 01/22/2025 How many times have you move d in the past 12 months? Zero (I did not move) 01/22/2025 Paying for Meds Answer Date Recorded Do you have trouble paying for medicines? No 01/22/2025 Paying Utility Bills Answer Date Record ed Do you have trouble paying your heating or elect ricity bill? No 01/22/2025 Transportation Answer Date Recorded Has the lack of transportati on kept you from medical appointments or from getting medications? No 01/22/2025 Digital Access Answer Date Recorded No 01/22/2025 Yes 01/22/2025 Do you have reliable internet access at home? Ye s 01/22/2025 Do you have a device (e.g., phone, tablet, computer) with a working camera? Yes 01/22/2025 Intimate Partner Violence Answer Date R ecorded Are you denied basic needs s uch as food, clothing, or medical care? No 01/22/2025 In the past 12 months have y ou been in a relationship with a person who hurts, threatens, or tries to control you? No 01/22/2025 Are you denied basic needs s uch as food, clothing, or medical care? No 01/22/2025 In the past 12 months have y ou been in a relationship with a person who hurts, threatens, or tries to control you? No 01/22/2025 Comments No Sex and Gender Information Value Date Recorded Sex Assigned at Female 01/28/2021 11:00 AM EDT Legal Sex Female 6:27 PM EST Gender Identity Female 01/28/2021 11:00 AM EDT Sexual Orientation Not on file Last Filed Vital Signs Vital Sign Reading Time Taken Comments Blood Pressure 110/68 03/22/2025 8:27 AM EDT Pulse 76 03/22/2025 8:27 AM EDT Temperature 36.3 C (97.3 F) 03/22/2025 8:27 AM EDT Respiratory Rate 14 02/14/2025 10:00 AM EDT Oxygen Saturation 96% 03/22/2025 8:27 AM EDT Inhaled Oxygen Concentration - - Weight 54.7 kg (120 lb 9.6 oz) 03/22/2025 8:27 A M EDT Height 160 cm (5' 2.99 ) 03/22/2025 8:27 AM EDT Body Mass Index 21.37 03/22/2025 8:27 AM EDT Plan of Treatment Upcoming Encounters Date Type Department Care Team (Late st Contact Info) Description 07/24/2025 8:30 AM EST Office Visit [address] [place] [address] Enoch Lorenzana MD [address] [place] [address], [address] [place] [phone] [email or web address] 01/02/2026 9:00 AM EDT Office Visit [address] [place] [address] Enoch Lorenzana MD [address] [place] [address], [address] [place] [address] [email or web address] Health Maintenance Due Date Last Done Comments COLOGUARD 1988 FIT TEST 1988 FOBT 1988 SIGMOIDOSCOPY 1988 VIRTUAL COLONOSCOPY 1988 COVID-19 VACCINE ( season) 2025 06/01/2024, 04/02/2023, 03/24/2022, Additional history exists DEPRESSION SCREENING 12/13/2025 12/13/2024 COLONOSCOPY 09/24/2027 09/23/2022, 11/2017, 05/21/2017 COLORECTAL CANCER SCREENING 09/24/2027 Adult Td,Tdap Booster 07/23/2031 07/23/2021, 012 OSTEOPOROSIS SCREENING INITIAL (ONE-TIME) Completed 12/09/2012 PNEUMOCOCCAL VACCINES (50+ years) Completed 07/11/2014, 07/15/2010 ZOSTER VACCINES Completed 03/02/2019, 11/21, 06/18/2007 RSV VACCINE Completed 08/05/2023 INFLUENZA VACCINE Completed 03/22/2025, , 04/02/2023, Additional history exists HEPATITIS A VACCINES Aged Out No long er eligible based on patient's age to complete this topic HIB VACCINES Aged Out No longer eligi ble based on patient's age to complete this topic MENINGOCOCCAL VACCINES (ACWY) Aged Out No longer eligible based on patient's age to complete this topic MENINGOCOCCAL VACCINES (B) Aged Out N o longer eligible based on patient's age to complete this topic Medical Devices Implanted Type Area Hospitality Specialist Device Identifier Shelf Expiration Date Model / Serial / Lot Plate Implanted:Qty: 1 Plate Spine Cervical Screw Implanted:Qty: 8 Screw Spine Cervical Mesh Surgical 1.8x4.0in Sm Hernia Prolene Polypropylene Nonabsorbable Preshaped Keyhole Repair Bx/3ea - [id number] Implanted:Qty: 1 on 08/27/2021 by Makenna Garcia MD at [facility] [employer] / DIVISION OF J 07/22/2025 PMSK / / [id number] Procedures Procedure Name Priority Date/Time Associated Diagnosis Comments VITAMIN B12 Routine 03/23/2025 10:43 AM EDT Malaise and fatigue TSH WITH REFLEX Routine 03/23/2025 10:43 AM EDT Malaise and fatigue HEMOGLOBIN A1C Routine 03/23/2025 10:43 AM EDT Abnormal fasting glucose HM COLONOSCOPY FOR RESULT ENTRY ONLY Routine 09/23/2022 OUTSIDE BONE DENSITY SCREENING Routine 12/09/2012 from Last 3 Months or Most Recently Relevant to Health Maintenance Results * TSH with reflex (03/23/2025 10:43 AM EDT) TSH 1.84 0.27 - 4.20 uIU/mL [facility] Blood 03/23/2025 10:4 3 AM EDT 03/23/2025 10:48 AM EDT Enoch Lorenzana MD LAB BLOOD BKR ORDERABLES F inal Result Performing Organization Address City/[facility]/ZIP Co de Phone Number [address] [address] * Hemoglobin A1c (03/23/2025 10:43 AM EDT) HEMOGLOBIN A1C 5.5 4.3 - 5.8 % [facility] Blood 03/23/2025 10:4 3 AM EDT 03/23/2025 10:48 AM EDT Enoch Lorenzana MD LAB BLOOD BKR ORDERABLES F inal Result Performing Organization Address City/[facility]/ZIP Co de Phone Number [address] [address] * Vitamin B12 (03/23/2025 10:43 AM EDT) VITAMIN B12 828 232 - 1,245 pg/mL [facility] Blood 03/23/2025 10:4 3 AM EDT 03/23/2025 10:48 AM EDT Enoch Lorenzana MD LAB BLOOD BKR ORDERABLES F inal Result Performing Organization Address [facility]/ZIP Co de Phone Number [address] [address] * HM COLONOSCOPY FOR RESULT ENTRY ONLY (09/23/2022) Enoch Lorenzana MD HEALTH MAINTENANCE Edited Result - Final * OUTSIDE BONE DENSITY SCREENING (12/09/2012) BONE DENSITY SCREENING - EXTERNAL repeat in 2 years Historical Provider HEALTH MAINTENANCE Final Result from Last 3 Months or Most Recently Relevant to Health Maintenance Insurance MEDICARE PART A & B [employer] MEDEX SUPPLEMENT MEDICARE PART A & B [employer] MEDEX SUPPLEMENT MEDICARE PART A & B [employer] MEDEX SUPPLEMENT MEDICARE PART A & B [employer] MEDEX SUPPLEMENT MEDICARE PART A & B [employer] MEDEX SUPPLEMENT MEDICARE PART A & B [employer] MEDEX SUPPLEMENT MEDICARE PART A & B [employer] MEDEX SUPPLEMENT MEDICARE PART A & B Member Subscriber Plan / Payer (Ef fective 2008-) Name:Nataly OliverJesus Member ID:[id number] Relation to Subscriber:Self Name:Nataly OliverJesus Subscriber ID:[id number] Payer ID:[id number] Group ID:Not on file Type:Medicare Address: [employer] [facility].[address] [address] [facility] MEDEX SUPPLEMENT MEDICARE PART A & B [employer] CROSS MEDEX SUPPLEMENT Advance Directives For more information, please contact: [phone] (9AM - 5PM [facility], Thursday-Thursday) Documents on File Type Date Recorded Patient Digital Marketing Manager Expl anation Healthcare Proxy 01/24/2025 12:49 PM health care proxy * Full Code (Latest Code Status on File) Date Activated Date Inactivated Comments 08/27/2021 6:35 AM Question Answer Comments Code Status Confirmed With: Patient Care Teams Lawnmower Mechanic Relationship Specialty Start Date End Date Enoch Lorenzana MD [address] [place] [address], [address] [address] [email or web address] PCP - General 11/30/14 Enoch Lorenzana MD [address] [place] [address], [address] [place] [address] [email or web address] Insurance Assigned Provider 09/26/23 Additional Source Comments The information contained in this document represents components of the legal health record. It is not the complete legal health record.[facility]
--- OUTSIDE RECORDS SUMMARY | 2025-04-25 11:38 | XMS_ITS | Patient Health Record ---
Author Organization [facility] Address [address] [place] [address] Care Team Providers Care Physical Therapist Center Manager Name Role Phone ASHLEY PALMA Unavailable [phone] Reason For Referral No Information Medications Medication SIG (Take, Route, Frequency, Duration) Notes Start Date End Date Status Albuterol HFA 90mcg/1actuation Oral Inha *please review for potential update for e-prescription and drug interaction check* Albuterol HFA 90mcg/1actuation Oral Inhaler 2 INHALATIONS EVERY 4-6 HOURS FOR COUGH OR WHEEZING. #8.5 (Eight point Five) gm 08/14/2015 Active Orphenadrine Citrate ER 100 MG 1 tab(s) po every 12 hrs as needed for muscle spasm.; Duration: 30 Orphenadrine Citrate 100mg Tablets, Sustained Release 1 tab(s) po every 12 hrs as needed for muscle spasm. #20 (Twenty) tablet(s) 08/20/2015 Active Cyclobenzaprine HCl 10 MG TAKE ONE TABLET EVERY 8 HOURS FOR MUSCLE SPASM. CAUSES DROWSINESS.; Duration: 30 Cyclobenzaprine HCl 10mg Tablet TAKE ONE TABLET EVERY 8 HOURS FOR MUSCLE SPASM. CAUSES DROWSINESS. #30 (Thirty) tablet(s) 08/14/2015 Active Problems Problem Type SNOMED Code ICD Code Onset Dates Problem Status W/U Status Risk Notes Problem Hyperlipidemia (66750160) Hyperlipidemia, unspecified (E78.5) 08/20/19 16 0 confirmed [id number] Problem Trigeminal neuralgia (19506096) Trigeminal neuralgia (G50.0) 08/20/19 16 0 confirmed [id number]- Problem Essential hypertension (97647579) Essential (primary) hypertension (I10) 08/20/19 16 0 confirmed [id number]- Problem Gastro-esophageal reflux disease without esophagitis (119182616) Gastro-esophage al reflux disease without esophagitis (K21.9) 08/20/19 16 0 confirmed [id number]- Problem Cervical radiculopathy (64127332) Radiculopathy, cervical region (M54.12) 08/23/19 16 0 confirmed [id number]- Problem Cervicalgia (78042702) Cervicalgia (M54.2) 08/14/19 16 0 confirmed [id number]- Problem Low back pain (172966816) Low back pain (M54.5) 08/14/19 16 0 confirmed [id number]- Problem Fibromyalgia (350445688) Fibromyalgia (729.1) 08/20/19 16 0 confirmed [id number]- Plan Of Treatment No Information Insurance Providers Payer Name Payer Address Payer Phone Subscriber Number Group Number Insured Name Patient Relationship to Insured Coverage Start Date Coverage End Date Medicare Part B [address] [place] [phone] [id number] null, null Self - patient is the insured
--- OUTSIDE RECORDS SUMMARY | 2025-04-25 11:38 | XMS_ITS | Encounter Summary ---
Author Organization [facility] Address [address] [place], [place] [id number] Phone Care Team Providers Care Imaging Tech Name Role Phone Enoch Lorenzana MD Primary Care Provider [phone] Enoch Lorenzana MD Unavailable [phone] Reason for Referral * MRI/CAT Scan - Closed Specialty Diagnoses / Procedures Referred By Bonifacio garg Referred To Contact Radiology Diagnoses Tremor Weakness Numbness Procedures MRI Brain Rodger Restrepo MD Phone: tel: fax: [email or web address] Referral ID Status Reason Start Date Expiration Date Visits Re quested Visits Authorized [id number] Closed 03/25/2019 03/24/2020 1 1 Encounter Details Date Type Department Care Team (Latest Contact Info) Description 03/25/2019 Transcribe Orders Virtual Department [address] [place] [id number] Rodger Restrepo MD [address] [place] [address], [address] [place] [address] [email or web address] Tremor (Primary Dx); Weakness; Numbness Social History Tobacco Use Types Packs/Day Years [...] Description 07/24/2025 8:30 AM EST Office Visit [address] [place] [address] Enoch Lorenzana MD [address] [place] [address], [address] [place] [address] [email or web address] 01/02/2026 9:00 AM EDT Office Visit [address] [place] [address] Enoch Lorenzana MD [address] [place] [address], [address] [place] [address] [email or web address] documented as of this encounter Results * MRI BRAIN WITHOUT CONTRAST (04/07/2019 1:10 PM EDT) Anatomical Region Laterality Modality Head Magnetic Resonan ce 04/07/2019 1:19 PM EDT Impressions 04/07/2019 1:29 PM EDT Progression of patchy T2/T2 FLAIR hyperintense change within the supratentorial white matter most likely due to chronic small vessel ischemia. No other significant changes. POS - [id number] Narrative 04/07/2019 1:29 PM EDT HISTORY: Tremors, visual changes. COMPARISON: Brain 03/19/2007. TECHNIQUE: Exam performed on a 1.5 Annmarie high-field MRI scanner. Axial T1, T2, T2*, T2 FLAIR and diffusion-weighted imaging with ADC map, sagittal T1 sequences were obtained. No contrast-enhanced sequences. FINDINGS: No evidence of intracranial hemorrhage, hematomas or acute infarcts. No evidence of suspicious intracranial masses. Mild-moderate patchy T2/T2 FLAIR hyperintense change within the supratentorial white matter bilaterally. This is progressed compared with 03/19/2007. Ventricles remain normal in size and configuration. Basal cisterns are patent. Normal flow-voids at the base of the skull. The paranasal sinuses are clear. Procedure Note Ricardo Holley MD - 04/07/2019 HISTORY: Tremors, visual changes. COMPARISON: Brain 03/19/2007. TECHNIQUE: Exam performed on a 1.5 Annmarie high-field MRI scanner. AxialT1, T2, T2*, T2 FLAIR and diffusion-weighted imaging with ADC map,sagittal T1 sequences were obtained. No contrast-enhanced sequences. FINDINGS: No evidence of intracranial hemorrhage, hematomas or acute infarcts. Noevidence of suspicious intracranial masses. Mild-moderate patchy T2/T2 FLAIR hyperintense change within thesupratentorial white matter bilaterally. This is progressed compared with03/19/2007. Ventricles remain normal in size and configuration. Basal cisterns arepatent. Normal flow-voids at the base of the skull. The paranasal sinuses are clear. IMPRESSION: Progression of patchy T2/T2 FLAIR hyperintense change within thesupratentorial white matter most likely due to chronic small vesselischemia. No other significant changes. POS - [id number] Rodger Restrepo MD IM MR HEAD/NECK Final Resul t documented in this encounter Visit Diagnoses Diagnosis Tremor- Primary Abnormal involuntary movements Weakness Other malaise and fatigue Numbness Disturbance of skin sensation Tremor Abnormal involuntary movements Weakness Other malaise and fatigue Numbness Disturbance of skin sensation documented in this encounter Additional Health Concerns Infection Onset Date Last Indicated Resolved Time CoV-Risk 08/21/2023 08/21/2023 09/01/2023 1:23 AM EDT Assessment Noted Time PHQ-2 Depression Total Score: 1 10/16/19 19 9:53 AM EDT documented as of this encounter Care Teams Imaging Tech Relationship Specialty Start Date End Date Enoch Lorenzana MD [address] [place] [address], [address] [place] [address] [email or web address] PCP - General 11/30/14 Enoch Lorenzana MD [address] [place] [address], [address] [place] [address] [email or web address] Insurance Assigned Provider 09/26/23 documented as of this encounter Additional Source Comments The information contained in this document represents components of the legal health record. It is not the complete legal health record.[facility]
--- OUTSIDE RECORDS SUMMARY | 2025-04-25 11:38 | XMS_ITS | Encounter Summary ---
Author Organization [facility] Address [address] [facility] [address] [place] [address] Phone Care Team Providers Care Link Trainer Name Role Phone Enoch Lorenzana MD Primary Care Provider [phone] Enoch Lorenzana MD Unavailable [phone] Encounter Details Date Type Department Care Team (Late st Contact Info) Description 01/22/2025 Procedure [facility], [facility] Scan - [facility] [address] [place] [address] Social History Tobacco Use Types Packs/Day Years Used Date Smoking Tobacco: Former Cigarettes 0.3 30 1 965 - 1994 Smokeless Tobacco: Never Alcohol Use Standard Drinks/Week Comments Yes 0 (1 standard drink = 0.6 oz pure alcohol) one glass of wine on special occasion Home Health Assessment: Transportation Answer Date Recorded Lack of Transportation (Medical) Yes 01/24/2025 Lack of Transportation (Non-Medical) Yes 01/24/2025 Patient Unable or Declines to Respond No 01/24/2025 Education Answer Date Recorded Are you interested [...] your housing situation today? I have juan dailey 01/22/2025 How many times have you move [...] Date of Assessment Author No Risk Indicated 01/22/2025 2:04 PM EDT Ralph Chatman RN * [place] Suicide Severity Rating Scale (Screener/Recent Self-Report) Question Answer Date of Assessment Author 1. Wish to be (Past 1 Month) No 025 2:04 PM EDT Ralph Chatman, RN 2. Non-Specific Active Suici graciela Thoughts (Past 1 Month) No 01/22/2025 2:04 PM EDT Lopez Chatman RN 6. Suicidal Behavior (Lifetime) No 5 2:04 PM EDT Ralph Chatman RN documented as of this encounter Plan of Treatment Upcoming Encounters Date Type Department Care Team (Late st Contact Info) Description 07/24/2025 8:30 AM EST Office Visit [address] [place] [address] Enoch Lorenzana MD [address] [place] [address], [address] [place] [address] [email or web address] 01/02/2026 9:00 AM EDT Office Visit [address] [place] [address] Enoch Lorenzana MD [address] [place] [address], [address] [place] [id number] [email or web address] documented as of this encounter Visit Diagnoses Not on filedocumented in this encounter Additional Health Concerns Assessment Noted Time PHQ-2 Depression Total Score: 0 12/14/19 25 2:32 PM EDT documented as of this encounter Care Teams Link Trainer Relationship Specialty Start Date End Date Enoch Lorenzana MD [address] [place] [address], [address] [place] [address] [email or web address] PCP - General 11/30/14 Enoch Lorenzana MD [address] [place] [address], [address] [place] [address] [email or web address] Insurance Assigned Provider 09/26/23 documented as of this encounter Additional Source Comments The information contained in this document represents components of the legal health record. It is not the complete legal health record.[facility]
--- OUTSIDE RECORDS SUMMARY | 2025-04-25 11:38 | XMS_ITS | Encounter Summary ---
Author Organization [facility] Address [address] [place] [address] [place] [phone] Phone Care Team Providers Care Sports Information Director Name Role Phone Enoch Lorenzana MD Primary Care Provider [phone] Enoch Lorenzana MD Unavailable [phone] Encounter Details Date Type Department Care Team (Latest Contact Info) Description 04/11/2017 Ancillary Orders [address] [address] Enoch Lorenzana MD [address] [place] [address], [address] [place] [address] [email or web address] Visit for screening mammogram Social History Tobacco Use Types Packs/Day Years Used Date Smoking Tobacco: Former Comments Unknown Sex and Gender Information Value Date Recorded Sex Assigned at Female 01/28/2021 11:00 AM EDT Legal Sex Female 6:27 PM EST Gender Identity Female 01/28/2021 11:00 AM EDT Sexual Orientation Not on file documented as of this encounter Plan of Treatment Upcoming Encounters Date Type Department Care Team (Late st Contact Info) Description 07/24/2025 8:30 AM EST Office Visit [address] [place] [address] Enoch Lorenzana MD [address] [place] [address], [address] [place] [address] [email or web address] 01/02/2026 9:00 AM EDT Office Visit [facility] [address] [place] [address] Enoch Lorenzana MD [address] [facility], [address] [place] [address] [email or web address] documented as of this encounter Results * BI MAMMOGRAM SCREENING WITH TOMOSYNTHESIS WITH CAD (BILATERAL) (05/22/2017 2:35 PM EST) Anatomical Region Laterality Modality Breast Left, Breast Right, Breast Bilateral Bila teral Mammography 05/22/2017 4:30 PM EST Impressions 05/22/2017 5:02 PM EST No mammographic evidence of malignancy. Recommend annual surveillance. BI-RADS CATEGORY: 2 - Benign finding. DENSITY: The breast tissue is almost entirely fat. POS - CDHMAMA Narrative 05/22/2017 5:02 PM EST 72-year-old female with no current breast symptoms. Comparison made to previous on 07/12/2014 and as far back as 09/09/2007. Interpretation made in conjunction with computer-aided detection and tomosynthesis. The breasts are almost entirely fatty. Increase in benign-appearing bilateral micro and macrocalcifications. Stable small left breast focal asymmetric nodular density. There are no suspicious masses, areas of architectural distortion, or suspicious clusters of microcalcifications. Procedure Note Silvia Chapman MD - 05/22/2017 72-year-old female with no current breast symptoms. Comparison made toprevious on 07/12/2014 and as far back as 09/09/2007. Interpretation madein conjunction with computer-aided detection and tomosynthesis. The breasts are almost entirely fatty. Increase in benign-appearingbilateral micro and macrocalcifications. Stable small left breast focalasymmetric nodular density. There are no suspicious masses, areas of architectural distortion, orsuspicious clusters of microcalcifications. IMPRESSION: No mammographic evidence of malignancy. Recommend annual surveillance. BI-RADS CATEGORY: 2 - Benign finding. DENSITY: The breast tissue is almost entirely fat. POS - CDHMAMA Enoch Lorenzana MD IMG MG EXAMS Final Resu lt documented in this encounter Visit Diagnoses Diagnosis Visit for screening mammogram Visit for screening mammogram documented in this encounter Additional Health Concerns Infection Onset Date Last Indicated Resolved Time CoV-Risk 08/21/2023 08/21/2023 09/01/2023 1:23 AM EDT documented as of this encounter Care Teams Sports Information Director Relationship Specialty Start Date End Date Enoch Lorenzana MD [address] [place] [address], [address] [place] [address] [email or web address] PCP - General 11/30/14 Enoch Lorenzana MD [address] [place] [address], [address] [place] [address] Insurance Assigned Provider 09/26/23 documented as of this encounter Additional Source Comments The information contained in this document represents components of the legal health record. It is not the complete legal health record.[facility]
--- OUTSIDE RECORDS SUMMARY | 2025-04-25 11:38 | XMS_ITS | Encounter Summary ---
Author Organization [facility] Address [address] [place], [place] [address] Phone Care Team Providers Care Billing Checker Name Role Phone Enoch Lorenzana MD Primary Care Provider [phone] Enoch Lorenzana MD Unavailable [phone] Reason for Referral * Outpatient Procedure - Closed Specialty Diagnoses / Procedures Referred By Bonifacio garg Referred To Contact Diagnoses TIA (transient ischemic attack) Procedures Adult Echo TTE Rodger Restrepo MD Phone: tel: fax: mailto: Referral ID Status Reason Start Date Expiration Date Visits Re quested Visits Authorized [id number] Closed 04/08/2019 04/07/2020 1 1 Encounter Details Date Type Department Care Team (Late st Contact Info) Description 04/08/2019 Ancillary Orders Virtual Department [address] [place] [address] Rodger Restrepo MD [address] [place] [address], [address] [place] [address] [email or web address] TIA (transient ischemic attack) Social History Tobacco Use Types Packs/Day Years [...] Description 07/24/2025 8:30 AM EST Office Visit [address] [place] [address] Enoch Lorenzana MD [address] [place] [address], [address] [place] [address] [email or web address] 01/02/2026 9:00 AM EDT Office Visit [address] [place] [address] Enoch Lorenzana MD [address] [place] [address], [address] [place] [address] [email or web address] documented as of this encounter Results * Event Monitor Looping up to 30 Days (05/26/2019 2:41 PM EST) Anatomical Region Laterality Modality Heart Other Narrative 05/26/2019 3:36 PM EST 30-day event monitor report Indication TIA Findings: Enrollment period is 04/26/2019 through 05/26/2019 The average heart rate 75 bpm, minimal heart rate 54 bpm, maximal heart rate 122 bpm. There is no evidence of atrial fibrillation. Rare PACs and PVCs were seen. There was a short run of a supraventricular tachycardia. There is also a 4 beat run of nonsustained ventricular tachycardia. Conclusion: Unremarkable event monitor with no evidence of atrial fibrillation. There was a 4 beat run of nonsustained ventricular tachycardia. There were a few short runs of a supraventricular tachycardia. The longest being 12 beats. Event Monitor Main Form The type of event monitor used is: continuous telemetry. Start date: 04/26/2019 End date: 05/26/2019 us Rodger Restrepo MD CV CARDIAC SERVICES ORDERABL ES Final Result * TTE COMPREHENSIVE (04/26/2019 10:25 AM EST) Body Surface Area 1.7 m2 Height 162 m Weight 66 kg Systolic BP 142 mmHg Diastolic BP 51 mmHg Left Atrium Dimension Anterior-Posterior 36 15 - 40 mm Aortic Valve Mean Gradient 3.00 mmHg Aortic Valve Time Velocity Integral 238.00 mm Aortic Valve Peak Velocity 120.0 cm/s Aortic Valve Peak Gradient 6.00 mmHg Aortic Sinus Diameter 26 mm Ascending Aorta Diameter 26 mm Inferior Vena Cava Diameter 14 0.0 - 21 mm Interventricular Septum Thickness 13 mm Left Ventricle Internal Diameter End Diastole 37 37 - 52 mm Left Ventricle Internal Diameter End Systole 26 22 - 35 mm Left Ventricular Outflow Tract Diameter 18.0 mm LVOT VTI REST 190.00 mm Left Ventricular Outflow Tract Velocity 1.0 m/s Left Ventricular Outflow Tract Gradient at Rest 4.00 mmHg Left Ventricular Posterior Wall Thickness 8 mm Ejection Fraction 56 50 - 75 Percent Mitral Valve Deceleration Time 148.00 ms Mitral Valve A Wave Speed 71.1 cm/s Mitral Valve E Wave Speed 49.5 cm/s Right Ventricle Basal Diameter 26.60 25 - 41 mm Tricuspid Valve Peak Velocity 2.4 m/s Raw LV EF% 51 % Left Atrial Volume 32 mL Left Atrial Volume Index 18.82 mL/m2 Right Ventricle Peak Systolic Pressure 26 mmHg Right Ventricle TAPSE 2 mm Right Atrium Pressure Estimated 3 mmHg Right Ventricle to Right Atrium Pressure Gradient 23 mmHg Aortic Valve Sinus Index 1 15 19 - 27 mm Ascending Aorta Diameter 15 mm Aortic Sinus Index 15 mm Ascending Aorta Index 15 mm Anatomical Region Laterality Modality Heart Ultrasound Narrative 04/26/2019 11:03 AM EST There is discrete upper septal thickening. Left ventricular systolic function is normal. There are no segmental left ventricular wall motion abnormalities noted. The estimated ejection fraction is 56% (Normal 50-75%). Trace mitral regurgitation Normal pulmonary pressure. No prior studies for comparison Left Ventricle Left ventricular cavity size is normal. There is discrete upper septal thickening. Left ventricular systolic function is normal. There are no segmental left ventricular wall motion abnormalities noted. The estimated ejection fraction is 56% (Normal 50-75%). The left ventricular ejection fraction was measured by the single dimension method. Left ventricular diastolic function appears within normal limits for age. There is no evidence of left ventricular thrombus. Right Ventricle The right ventricular size is normal. The right ventricular systolic function is normal. Left Atrium The left atrium is normal in size. The LA volume index is 18.82 mL/m2 (normal indexed value is 16-34 mL/m2). The pulmonary venous flow profiles are normal. Right Atrium The right atrium is normal in size. The IVC measures 14 mm (normal <=21 mm). The IVC demonstrates normal collapse with inspiration which is consistent with normal RA pressure. Mitral Valve The mitral valve appears normal. E/A ratio is 0.7. E/E' avg is 6.2. Lat E' velocity is 9.57cm/s. Med E' velocity is 6.31cm/s. There is no evidence of mitral stenosis. There is trace mitral regurgitation detected by spectral and color Doppler. Tricuspid Valve The tricuspid valve appears normal. There is no evidence of tricuspid stenosis. There is evidence of mild tricuspid regurgitation by color and spectral Doppler. Peak TR is 2.4m/s. Normal pulmonary pressure. The RV systolic pressure was estimated from the peak TV regurgitant velocity. The estimated RV systolic pressure is 26 mmHg assuming a right atrial pressure of 3 mmHg. Aortic Valve The aortic valve appears normal. The aortic valve is tricuspid. There is mild thickening of multiple aortic leaflets. There is no evidence of valvular aortic stenosis. The peak aortic valve gradient is 6 mmHg. There is no evidence of aortic regurgitation by color and spectral Doppler. The visualized portions of the thoracic aorta appear normal. Pulmonic Valve The pulmonary valve appears normal. There is no evidence of pulmonic stenosis. There is evidence of mild to moderate pulmonary regurgitation by color and spectral Doppler. Pericardium There is no evidence of pericardial effusion. Interatrial Septum The interatrial septum appears normal. There is no evidence of an atrial septal defect. Interventricular Septum Interventricular septal motion appears normal. There is no evidence of a ventricular septal defect. General Findings The image quality was good (2). Technique(s) used in the evaluation: Color flow Doppler and Spectral Doppler. Comparison Findings No prior studies for comparison. us Rodger Restrepo MD CV ECHO ORDERABLES Final Res ult * US Carotid Duplex (Bilateral) (04/12/2019 12:53 PM EDT) Anatomical Region Laterality Modality Heart, Thoracic Vasculature, Neck Ultrasound 04/12/2019 1:05 PM EDT Impressions 04/12/2019 1:08 PM EDT Only minimal calcific plaquing evident in the left carotid bulb. No significant internal carotid artery stenosis is seen. Vertebral arteries are patent with antegrade flow bilaterally. S/S: TIA (transient ischemic attack) TIA (transient ischemic attack). TIA, visual changes, bilateral hand tremors-progressive POS - [id number] Narrative 04/12/2019 1:08 PM EDT The carotid circulation is visualized well with grayscale imaging, color flow imaging, and Doppler spectral analysis. On the right there is no significant plaquing evident. On the left there is minimal plaque in the carotid bulb evident. Both external carotid and vertebral arteries are patent with antegrade flow bilaterally. No internal carotid artery stenosis is seen on either side. The right internal carotid artery has a peak systolic velocity of 1.18 m/s with an end-diastolic velocity of 0.35 m/s. On the left the internal carotid artery has a peak systolic velocity of 1.17 m/s with an end-diastolic velocity of 0.43 m/s. Minimal bilateral spectral broadening is evident. Any stenosis measurement is relative to the distal ICA diameters. Procedure Note Kingsley Gregory MD - 04/12/2019 The carotid circulation is visualized well with grayscale imaging, colorflow imaging, and Doppler spectral analysis. On the right there is nosignificant plaquing evident. On the left there is minimal plaque in thecarotid bulb evident. Both external carotid and vertebral arteries arepatent with antegrade flow bilaterally. No internal carotid artery stenosis is seen on either side. The right internal carotid artery has a peak systolic velocity of 1.18 m/swith an end-diastolic velocity of 0.35 m/s. On the left the internalcarotid artery has a peak systolic velocity of 1.17 m/s with anend-diastolic velocity of 0.43 m/s. Minimal bilateral spectral broadeningis evident. Any stenosis measurement is relative to the distal ICA diameters. IMPRESSION: Only minimal calcific plaquing evident in the left carotid bulb. Nosignificant internal carotid artery stenosis is seen. Vertebral arteriesare patent with antegrade flow bilaterally. S/S: TIA (transient ischemic attack) TIA (transient ischemic attack). TIA, visual changes, bilateral handtremors-progressive POS - [id number] us Rodger Restrepo MD CV US NEUROVASCULAR Final Re sult documented in this encounter Visit Diagnoses Diagnosis TIA (transient ischemic attack) Unspecified transient cerebral ischemia TIA (transient ischemic attack) Unspecified transient cerebral ischemia TIA (transient ischemic attack) Unspecified transient cerebral ischemia TIA (transient ischemic attack) Unspecified transient cerebral ischemia documented in this encounter Additional Health Concerns Infection Onset Date Last Indicated Resolved Time CoV-Risk 08/21/2023 08/21/2023 09/01/2023 1:23 AM EDT Assessment Noted Time PHQ-2 Depression Total Score: 1 10/16/19 19 9:53 AM EDT documented as of this encounter Care Teams Billing Checker Relationship Specialty Start Date End Date Enoch Lorenzana MD [address] [place] [address], [address] [place] [address] PCP - General 11/30/14 Enoch Lorenzana MD [address] [place] [address], [address] [place] [address] Insurance Assigned Provider 09/26/23 documented as of this encounter Additional Source Comments The information contained in this document represents components of the legal health record. It is not the complete legal health record.[facility]
--- OUTSIDE RECORDS SUMMARY | 2025-04-25 11:38 | XMS_ITS | Encounter Summary ---
Author Organization [facility] Address [address] [place] [address] [place] [address] Phone Care Team Providers Care Fashion Design Professor Name Role Phone Enoch Lorenzana MD Primary Care Provider + [phone] Enoch Lorenzana MD Unavailable [phone] Encounter Details Date Type Department Care Team (Late st Contact Info) Description 08/21/2020 Procedure Pass [address] [address] Social History Tobacco Use Types Packs/Day Years [...] Description 07/24/2025 8:30 AM EST Office Visit [facility] Medicine [address] [place] [address] [place] [address] Enoch Lorenzana MD [address] [place] [address], [address] [place] [address] 01/02/2026 9:00 AM EDT Office Visit [facility] Medicine [address] [place] [address] Enoch Lorenzana MD [address] [facility], [address] [place] [address] [email or web address] documented as of this encounter Visit Diagnoses Not on filedocumented in this encounter Additional Health Concerns Infection Onset Date Last Indicated Resolved Time CoV-Risk 08/21/2023 08/21/2023 09/01/2023 1:23 AM EDT Assessment Noted Time PHQ-2 Depression Total Score: 0 07/17/19 8:03 AM EST documented as of this encounter Care Teams Fashion Design Professor Relationship Specialty Start Date End Date Enoch Lorenzana MD [address] [place] [address], [address] [place] [address] PCP - General 11/30/14 Enoch Lorenzana MD [address] [place] [address], [address] [place] [address] Insurance Assigned Provider 09/26/23 documented as of this encounter Additional Source Comments The information contained in this document represents components of the legal health record. It is not the complete legal health record.[facility]
--- OUTSIDE RECORDS SUMMARY | 2025-04-25 11:39 | XMS_ITS | Encounter Summary ---
Author Organization [facility] Address [address] [place] [address] Phone Care Team Providers Care Internship Name Role Phone Enoch Lorenzana MD Primary Care Provider [phone] Enoch Lorenzana MD Unavailable [phone] Encounter Details Date Type Department Care Team (Late st Contact Info) Description 02/26/2024 Procedure Pass OR Admitting Dept - Virtual Department [address] [place] [address] Social History Tobacco Use Types Packs/Day Years [...] with a working camera? Not on file Comments No Sex and Gender Information Value Date Recorded Sex Assigned at Female 01/28/2021 11:00 AM EDT Legal Sex Female 6:27 PM EST Gender Identity Female 01/28/2021 11:00 AM EDT Sexual Orientation Not on file documented as of this encounter Plan of Treatment Upcoming Encounters Date Type Department Care Team (Late Contact Info) Description 07/24/2025 8:30 AM EST Office Visit [address] [place] [address] Enoch Lorenzana MD [address] [place] [address], [address] [place] [address] 01/02/2026 9:00 AM EDT Office Visit [address] [place] [address] Enoch Lorenzana MD [address] [place] [address], [address] [place] [address] documented as of this encounter Visit Diagnoses Not on filedocumented in this encounter Additional Health Concerns Assessment Noted Time PHQ-2 Depression Total Score: 1 07/31/19 24 8:58 AM EST documented as of this encounter Care Teams Internship Relationship Specialty Start Date End Date Enoch Lorenzana MD [address] [place] [address], [address] [place] [address] PCP - General 11/30/14 Enoch Lorenzana MD [address] [place] [address], [address] [place] [address] Insurance Assigned Provider 09/26/23 documented as of this encounter Additional Source Comments The information contained in this document represents components of the legal health record. It is not the complete legal health record.[facility]
--- OUTSIDE RECORDS SUMMARY | 2025-04-25 11:39 | XMS_ITS | Encounter Summary ---
Author Organization [facility] Address [address] [place] [address] [place] [address] Phone Care Team Providers Care Boat Rigger Name Role Phone Enoch Lorenzana MD Primary Care Provider [phone] Enoch Lorenzana MD Unavailable [phone] Encounter Details Date Type Department Care Team (Late st Contact Info) Description 08/21/2023 Procedure Pass [facility], Ct Scan - [facility] [address] [place] [address] Social History Tobacco Use Types Packs/Day Years [...] Date of Assessment Author No Risk Indicated 08/21/2023 2:37 PM Renu Atkins RN * [place] Suicide Severity Rating Scale (Screener/Recent Self-Report) Question Answer Date of Assessment Author 1. Wish to be (Past 1 Month) No 08/21/2023 2:37 PM Renu Atkins RN 2. Non-Specific Active Suici graciela Thoughts (Past 1 Month) No 08/21/2023 2:37 PM Karissa Atkins RN 6. Suicidal Behavior (Lifetime) No 2:37 PM Renu Atkins RN documented as of this encounter Plan of Treatment Upcoming Encounters Date Type Department Care Team (Late st Contact Info) Description 07/24/2025 8:30 AM EST Office Visit [address] [place] [address] Enoch Lorenzana MD [address] [place] [address], [address] [place] [address] 01/02/2026 9:00 AM EDT Office Visit [address] [place] [address] Enoch Lorenzana MD [address] [place] [address], [address] [place] [address] documented as of this encounter Visit Diagnoses Not on filedocumented in this encounter Additional Health Concerns Infection Onset Date Last Indicated Resolved Time CoV-Risk 08/21/2023 08/21/2023 09/01/2023 1:23 AM EDT Assessment Noted Time PHQ-2 Depression Total Score: 1 07/31/19 24 8:58 AM EST documented as of this encounter Care Teams Boat Rigger Relationship Specialty Start Date End Date Enoch Lorenzana MD [address] [place] [address], [address] [place] [address] [email or web address] PCP - General 11/30/14 Enoch Lorenzana MD [address] [place] [address], [address] [place] [address] [email or web address] Insurance Assigned Provider 09/26/23 documented as of this encounter Additional Source Comments The information contained in this document represents components of the legal health record. It is not the complete legal health record.[facility]
--- OUTSIDE RECORDS SUMMARY | 2025-04-25 11:39 | XMS_ITS | Encounter Summary ---
Author Organization [facility] Address [address] [place] [address] [place] [address] Phone Care Team Providers Care Marketing Communications Manager Name Role Phone Enoch Lorenzana MD Primary Care Provider [phone] Enoch Lorenzana MD Unavailable [phone] Reason for Visit * Reason Onset Date Comments Ed Follow up 01/23/2025 [facility] 01/[facility]/25,DX UTI Encounter Details Date Type Department Care Team (Late st Contact Info) Description 01/23/2025 Telephone [facility] [address] [address] Enoch Lorenzana MD [address] [facility], [address] [place] [address] [email or web address] Ed Follow up ([facility] 01/23/25,DX UTI) Social History Tobacco Use Types Packs/Day Years Used Date Smoking Tobacco: Former Cigarettes 0.3 30 1 965 - 1995 Smokeless Tobacco: Never Alcohol Use Standard Drinks/Week [...] on file documented as of this encounter Progress Notes * Ellen Bermeo - 01/23/2025 11:20 AM EDT [facility] [place] PEN Top Smart Phrases: Emergency Department (ED, ER) Appointment Booking Telephone Encounter 1.Appointment scheduled within 5 calendar days:YES/NO: yes? 2.Virtual or in-person appointment: In-Person 3.Information related to the patient ER/ED visit: A. Facility Name:? [facility] B. Date of ED Visit: 01/23/25 C. Reason for visit (Diagnosis/Symptoms):? Uti 4.Is the record of the Emergency Department visit in the chart: YES/NO: yes? a. IF NOT, patient was instructed to have records faxed to office, and to bring in a hard copy during the appointment. documented in this encounter Plan of Treatment Upcoming Encounters Date Type Department Care Team (Late st Contact Info) Description 07/24/2025 8:30 AM EST Office Visit [address] [place] [address] Enoch Lorenzana MD [address] [place] [address], [address] [place] [address] [email or web address] 01/02/2026 9:00 AM EDT Office Visit [address] [place] [address] Enoch Lorenzana MD [address] [place] [address], [address] [address] [email or web address] documented as of this encounter Visit Diagnoses Not on filedocumented in this encounter Additional Health Concerns Assessment Noted Time PHQ-2 Depression Total Score: 0 12/14/19 25 2:32 PM EDT documented as of this encounter Care Teams Marketing Communications Manager Relationship Specialty Start Date End Date Enoch Lorenzana MD [address] [place] [address], [address] [place] [address] PCP - General 11/30/14 Enoch Lorenzana MD [address] [place] [address], [address] [place] [address] [email or web address] Insurance Assigned Provider 09/26/23 documented as of this encounter Additional Source Comments The information contained in this document represents components of the legal health record. It is not the complete legal health record.[facility]
--- OUTSIDE RECORDS SUMMARY | 2025-04-25 11:39 | XMS_ITS | Encounter Summary ---
Author Organization [facility] Address [address] [place] [address] Phone Care Team Providers Care Alignment Technician Name Role Phone Enoch Lorenzana MD Primary Care Provider [phone] Enoch Lorenzana MD Unavailable [phone] Encounter Details Date Type Department Care Team (Late st Contact Info) Description 08/28/2023 Procedure Pass [facility], [address] [address] Social History Tobacco Use Types Packs/Day Years [...] Description 07/24/2025 8:30 AM EST Office Visit [address] [place] [address] Enoch Lorenzana MD [address] [place] [address], [address] [place] [address] 01/02/2026 9:00 AM EDT Office Visit [address] [place] [address] Enoch Lorenzana MD [address] [place] [address], [address] [place] [address] documented as of this encounter Visit Diagnoses Not on filedocumented in this encounter Additional Health Concerns Infection Onset Date Last Indicated Resolved Time CoV-Risk 08/21/2023 08/21/2023 09/01/2023 1:23 AM EDT Assessment Noted Time PHQ-2 Depression Total Score: 1 07/31/19 24 8:58 AM EST documented as of this encounter Care Teams Alignment Technician Relationship Specialty Start Date End Date Enoch Lorenzana MD [address] [place] [address], [address] [place] [address] PCP - General 11/30/14 Enoch Lorenzana MD [address] [place] [address], [address] [place] [address] Insurance Assigned Provider 09/26/23 documented as of this encounter Additional Source Comments The information contained in this document represents components of the legal health record. It is not the complete legal health record.[facility]
--- OUTSIDE RECORDS SUMMARY | 2025-04-25 11:39 | XMS_ITS | Encounter Summary ---
Author Organization [facility] Address [address] [place] [address] Phone Care Team Providers Care Mobile Developer Name Role Phone Enoch Lorenzana MD Primary Care Provider [phone] Enoch Lorenzana MD Unavailable [phone] Encounter Details Date Type Department Care Team ([facility] st Contact Info) Description 02/23/2024 Prep for Surgery [facility] [address] [place] [address] Shereen Vieira MD [address] [place] [address] Orthopedics & Sports Medicine, [place] [address] [email or web address] Social History Tobacco Use Types Packs/Day Years [...] Description 07/24/2025 8:30 AM EST Office Visit [address] [place] [address] Enoch Lorenzana MD [address] [place] [address], [address] [place] [address] [email or web address] 01/02/2026 9:00 AM EDT Office Visit [address] [place] [address] Enoch Lorenzana MD [address] [place] [address], [address] [place] [address] documented as of this encounter Visit Diagnoses Not on filedocumented in this encounter Additional Health Concerns Assessment Noted Time PHQ-2 Depression Total Score: 1 07/31/19 8:58 AM EST documented as of this encounter Care Teams Mobile Developer Relationship Specialty Start Date End Date Enoch Lorenzana MD [address] [place] [address], [address] [place] [address] [employer] PCP - General 11/30/14 Enoch Lorenzana MD [address] [place] [address], [address] [place] [address] [employer] Insurance Assigned Provider 09/26/23 documented as of this encounter Additional Source Comments The information contained in this document represents components of the legal health record. It is not the complete legal health record.[facility]
--- OUTSIDE RECORDS SUMMARY | 2025-04-25 11:39 | XMS_ITS | Encounter Summary ---
Author Organization [facility] Address [address] [place] [address] Phone Care Team Providers Care Vegetable Farming Supervisor Name Role Phone Enoch Lorenzana MD Primary Care Provider [phone] Enoch Lorenzana MD Unavailable [phone] Encounter Details Date Type Department Care Team (Late st Contact Info) Description 01/28/2021 Procedure Pass [facility], Ct Scan - [facility] [address] [place] [address] Social History Tobacco Use Types Packs/Day Years [...] Date of Assessment Author No Risk Indicated 01/28/2021 10:58 AM YASHT Shraddha Garcia RN * [place] Suicide Severity Rating Scale (Screener/Recent Self-Report) Question Answer Date of Assessment Author 1. Wish to be (Past 1 Month) No 021 10:58 AM EDT Shraddha Garcia, MAR[place]A 2. Non-Specific Active Suici graciela Thoughts (Past 1 Month) No 01/28/2021 10:58 AM EDT Shraddha Garcia , [place] 6. Suicidal Behavior (Lifetime) No 10:58 AM EDT Shraddha Garcia RN documented as of this encounter Plan of Treatment Upcoming Encounters Date Type Department Care Team (Late st Contact Info) Description 07/24/2025 8:30 AM EST Office Visit [address] [place] [address] Enoch Lorenzana MD [address] [place] [address], [address] [place] [address] 01/02/2026 9:00 AM EDT Office Visit [address] [place] [address] Enoch Lorenzana MD [address] [place] [address], [address] [place] [address] documented as of this encounter Visit Diagnoses Not on filedocumented in this encounter Additional Health Concerns Infection Onset Date Last Indicated Resolved Time CoV-Risk 08/21/2023 08/21/2023 09/01/2023 1:23 AM EDT Assessment Noted Time PHQ-2 Depression Total Score: 0 07/17/19 21 8:03 AM EST documented as of this encounter Care Teams Vegetable Farming Supervisor Relationship Specialty Start Date End Date Enoch Lorenzana MD [address] [place] [address], [address] [place] [address] PCP - General 11/30/14 Enoch Lorenzana MD [address] [place] [address], [address] [place] [address] Insurance Assigned Provider 09/26/23 documented as of this encounter Additional Source Comments The information contained in this document represents components of the legal health record. It is not the complete legal health record.[facility]
== END 2025-04-25 10:42 | disposition home or self-care (01) ==
LOC: HO.HSM 10:00
PROVIDERS: PCP Family Medicine; Visit Provider Psychiatry & Neurology Neurology
DX: G25.0 Essential tremor (principal); G20.A1 Parkinson's disease without dyskinesia, without mention of fluctuations; G50.0 Trigeminal neuralgia
CPT/HCPCS: 99204

== ENCOUNTER → 2025-04-25 10:00 | Outpatient (BNVA) | payer MEDICARE, SELFPAY | PROVIDERS: PCP Family Medicine; Visit Provider Psychiatry & Neurology Neurology | DX: G25.0 Essential tremor (principal); G20.A1 Parkinson's disease without dyskinesia, without mention of fluctuations; G50.0 Trigeminal neuralgia | CPT/HCPCS: 99202 ==